=== PATIENT | female | born 1960 | race Caucasian/White ===

== ENCOUNTER → 2024-07-08 11:45 | Outpatient (REF) | payer MEDICARE, SELFPAY | LOC: HWWDC 11:45 | PROVIDERS: ATTENDING PHYSICIAN Obstetrics & Gynecology; FAMILY PHYSICIAN Family Medicine | DX: Z12.31 Encounter for screening mammogram for malignant neoplasm of breast (principal) | CPT/HCPCS: 77063; 77067 ==

== ENCOUNTER → 2025-01-13 13:33 | Outpatient (REF) | payer MEDICARE, SELFPAY | LOC: HWRAD 13:33 | PROVIDERS: ATTENDING PHYSICIAN Family Medicine | DX: I83.819 Varicose veins of unspecified lower extremity with pain (principal); R22.42 Localized swelling, mass and lump, left lower limb | CPT/HCPCS: 93971 ==

== ENCOUNTER 2025-01-25 06:22 | Day surgery (SDC) | payer MEDICARE, SELFPAY ==
[2025-01-25 13:41] LABS: Glucose - Point of Care 113 mg/dl (70-99)
== END 2025-01-25 16:12 | disposition home or self-care (01) ==
LOC: GI 06:22
PROVIDERS: ATTENDING PHYSICIAN Internal Medicine Gastroenterology
DX: Z12.11 Encounter for screening for malignant neoplasm of colon (principal); K57.30 Diverticulosis of large intestine without perforation or abscess without bleeding; K22.89 Other specified disease of esophagus; K44.9 Diaphragmatic hernia without obstruction or gangrene; K31.89 Other diseases of stomach and duodenum; D12.3 Benign neoplasm of transverse colon; D12.5 Benign neoplasm of sigmoid colon; D12.8 Benign neoplasm of rectum; K63.5 Polyp of colon; Z86.0101 Personal history of adenomatous and serrated colon polyps
CPT/HCPCS: 45385; 45380; 43239; 88305; 82962; 88342

== ENCOUNTER → 2025-03-26 14:16 | Outpatient (REF) | payer MEDICARE, SELFPAY | LOC: HWRAD 14:16 | PROVIDERS: ATTENDING PHYSICIAN Family Medicine; REFERRING PHYSICIAN Obstetrics & Gynecology | DX: N95.1 Menopausal and female climacteric states (principal); Z13.820 Encounter for screening for osteoporosis; M81.0 Age-related osteoporosis without current pathological fracture | CPT/HCPCS: 77080 ==

== ENCOUNTER → 2025-06-21 11:52 | Outpatient (REF) | payer MEDICARE, SELFPAY | LOC: HWRAD 11:52 | PROVIDERS: ATTENDING PHYSICIAN Family Medicine | DX: M54.2 Cervicalgia (principal) | CPT/HCPCS: 72050 ==

== ENCOUNTER → 2025-07-09 11:55 | Outpatient (REF) | payer MEDICARE, SELFPAY | LOC: HWWDC 11:55 | PROVIDERS: ATTENDING PHYSICIAN Clinical Nurse Specialist Women's Health; FAMILY PHYSICIAN Family Medicine; REFERRING PHYSICIAN Obstetrics & Gynecology | DX: Z12.31 Encounter for screening mammogram for malignant neoplasm of breast (principal) | CPT/HCPCS: 77063; 77067 ==

== ENCOUNTER → 2025-07-15 08:38 | Outpatient (REF) | payer MEDICARE, SELFPAY | LOC: WDC 08:38 | PROVIDERS: ATTENDING PHYSICIAN Clinical Nurse Specialist Women's Health; FAMILY PHYSICIAN Family Medicine | DX: R92.8 Other abnormal and inconclusive findings on diagnostic imaging of breast (principal) | CPT/HCPCS: 76642 ==